=== PATIENT | female | born 1985 | race Caucasian/White ===

== ENCOUNTER 2017-01-10 06:40 | Emergency (ER) | payer OTHER ==
--- NOTE | ~2017-01-10 | CT52 ---
[facility] A Service of [facility] & [facility] RADIOLOGY TEXT RESULTS PATIENT: IRAM HURLEY LOCATION: SED : 85 UNIT #: [id number] AGE: [address]: Torsten Haq MD SEX: F ORDER DR: [id number] [address] [address] [id number] E MR#: [id number] Acc #: [id number] NAME: IRAM HURLEY : 1985 SEX: F STUDY DATE/TIME: 01/10/2017 7:57 UNIT: SED ROOM: STUDY DESCRIPTION: CT Cervical Spine Wo Cont Attending Physician: Torsten Haq M.D. Ordering Physician: Torsten Haq M.D. Primary Care Physician: Rani Kim M.D. MEDICAL IMAGING REPORT This report is preliminary unless electronic signature is present. EXAM CT cervical spine 01/10/2017. HISTORY Pain, right should pain radiating to the neck and head since this a.m. Prior cervical spine surgery at 2 years of age[address] cervical spine performed. Bone, soft tissue windows reviewed. Sagittal and coronal reconstructions performed. This CT exam was performed with one or more of the following radiation dose reduction techniques: automatic exposure control, adjustment of mA and/or kV according to patient size, and iterative reconstruction. COMPARISON 02/24/2010. FINDINGS Visualized portions of the brain show no acute abnormality. The visualized paranasal sinuses and mastoid air cells are clear. Nasopharyngeal, oropharyngeal, pharyngeal mucosal, retropharyngeal spaces, larynx, subglottic airway, superior mediastinum, lung apices unremarkable. Thyroid, submandibular, parotid glands unremarkable. No adenopathy. There is no evidence of traumatic paraspinal soft tissue abnormality. The patient is status post suboccipital craniotomy. I believe the patient is status post-surgical resection posterior arch C1 and probably status post posterior unroofing procedure at C2. It is possible that the C1 and C2 changes are congenital in nature. They are unchanged from 2009. Please correlate with operative history. There is minimal, perhaps 1 to 2 mm anterolisthesis C4 on C5. No change. Vertebral body heights normal. Intervertebral disc space heights within normal limits. [facility]. [facility] A Service of [facility] RADIOLOGY TEXT RESULTS PATIENT: IRAM HURLEY LOCATION: RONEL : [birth year] UNIT #: [id number] AGE: [address]: Torsten Haq MD SEX: F ORDER DR: C2-C3, C3-C4: No disc bulge or herniation. Spinal canal bilaterally normal. The neural foramina are normal. C4-C5: Mild anterolisthesis as noted. Minimal posterior central disc bulge. Minimal mass effect on thecal sac. No spinal stenosis. Neural foramina patent. C5-C6, C6-C7, C7-T1, T1-T2, T2-T3, T3-T4: Unremarkable. IMPRESSION 1. There is no clearly acute abnormality in the cervical spine. The patient is status post suboccipital craniotomy and probable posterior unroofing procedures at the C1 and C2 levels. It is possible that the changes at C1 and C2 are congenital in nature, but I favor postoperative. Correlate with history. These findings are unchanged from 01/2010. 2. There is minimal 1-2 mm anterolisthesis of C4 on C5. Stable. 3. No spinal stenosis. No cord compression. The neural foramina are normal throughout the visualized spine. See details in body of report above. Dictated by... Huber Ellington M.D. THIS IS AN ELECTRONICALLY VERIFIED REPORT Huber Ellington M.D. at 01/12/2017 2:30 PM Michelet TD: 01/10/2017 14:01 JOB #: [id number] MEDICAL IMAGING REPORT Page 1 of 1
[~2017-01-10 06:40] MED LIST: AMOXICILLIN PO; BACTRIM DS TABL1 TA1 PO; BIRTH CONTROL PILL PO; MULTIVITAMIN W-1 TAB PO; PRENATAL1 TA1 PO; ZOFRAN ODT4 MG PO; ZOLOFT PO; ZOLOFT100 MG PO
[2017-01-10] MEDS ORDERED: ZYRTEC10 M1 PO (06:55)
[2017-01-10] MEDS ORDERED: FLONASE 0.05% N16 G1 (06:56)
[2017-01-10] MEDS ORDERED: LINZESS72 MCG PO (06:56)
== END 2017-01-10 08:35 | disposition home or self-care (01) ==
LOC: SED 06:40
DX: M54.12 Radiculopathy, cervical region (principal); M43.6 Torticollis; F32.9 Major depressive disorder, single episode, unspecified; I10 Essential (primary) hypertension; F41.9 Anxiety disorder, unspecified; M41.9 Scoliosis, unspecified; F17.210 Nicotine dependence, cigarettes, uncomplicated
CPT/HCPCS: 72125; 99283